=== PATIENT | male | born 1965 | race Caucasian/White ===

== ENCOUNTER 2018-12-09 03:34 | Emergency (ER) | payer BC ==
[2018-12-09] MEDS ORDERED: KETOROLAC TROMETHAMINE 60 MG/2 ML VIAL IM ONE (03:46)
[2018-12-09] MEDS ORDERED: predniSONE 20 MG TABLET (UD) PO ONE (03:47)
[2018-12-09] MEDS ORDERED: CYCLOBENZAPRINE HCL 10 MG TABLET (FP) PO ONE (03:47)
[2018-12-09 03:48] VITALS: BP 137/84; PULSE 68; TEMP 97.7; BMI 36.2
--- NOTE | 2018-12-09 03:49 | PDOC ---
History of Present Illness - General Chief Complaint: Back Pain Stated Complaint: BACK PAIN Time Seen by Provider: 12/09/18 03:42 History Source: Patient Exam Limitations: No Limitations - History of Present Illness Initial Comments: 12/09/18 03:52 This is a 53-year-old male who comes in complaining of low back pain. Patient said he fell on some steps and injured his back several days ago. Patient said he was fine and there was no pain to today when he developed spasms in the back. Patient denied any radiation down his leg. Patient denied any neurological symptoms. Patient is only taken a couple of Tylenol earlier in the day for the pain without relief. Allergies: as per nursing notes Past Medical History: none Social history: Lives with family. No smoking. No alcohol. No illicit drugs. Surgical history: None General: No fevers or chills, no weakness, no weight loss HEENT: No change in vision. No sore throat,. No ear pain CardioVascular: no chest discomfort. No shortness of breath Respiratory:No cough, or wheezing. Gastrointestinal: no nausea, vomiting, diarrhea or constipation, No rectal bleeding Genitourinary: No dysuria, hematuria, or frequency Musculoskeletal: Low back pain as per history of present illness by Neurologic: No headache, vertigo, dizziness or loss of consciousness Psychiatric: nor depression Skin: No rashes or easy bruising Endocrine: no increased thirst or abnormal weight change Allergic: no skin or latex allergy All other systems reviewed and normal GENERAL: The patient is awake, alert, and fully oriented, in no acute distress. HEAD: Normal with no signs of trauma. EYES: Pupils equal, round and reactive to light, extraocular movements intact, sclera anicteric, conjunctiva clear. BACK: There is spasm and some mild tenderness to the right paraspinal area in the mid back. There is no tenderness of the thoracic lumbar or cervical spine. Neurovascular is intact. EXTREMITIES:atraumatic, Normal range of motion, no edema. NEUROLOGICAL: Normal speech, normal gait. PSYCH: Normal mood, normal affect. SKIN: Warm, Dry, normal turgor, no rashes or lesions noted. Assessment and plan: This is a 53-year-old male who developed spasm in his mid back area post falling and injuring himself. Patient initially had no discomfort but then over the course of several days developed a discomfort to the point now he came in. Patient was given an anti-inflammatory Toradol, Flexeril for muscle relaxing and prednisone. Patient discharged home will follow -up with his primary care doctor. Past History - Past Medical History Allergies/Adverse Reactions: Allergies Allergy/AdvReac Type Severity Reaction Status Date / Time No Known Allergies Allergy Verified 06/23/16 12:27 Home Medications: Ambulatory Orders Alprazolam [Xanax] 0.25 mg PO DAILY PRN 06/16/16 Calcium Carbonate/Vitamin D3 [Calcium 600 + Vitamin D Sftgl] 2 tab PO DAILY Multivitamins [Multivit ([facility] Formulary)] 1 tab PO DAILY 06/16/16 Floyd-3/Dha/Epa/Fish Oil [Fish Oil 500 mg Softgel] 2 cap PO DAILY 06/16/16 Omeprazole 40 mg PO DAILY 06/16/16 Zolpidem Tartrate [Ambien] 10 mg PO HS PRN 06/16/16 Oxycodone HCl/Acetaminophen [Percocet 5-325 mg Tablet] 1 tab PO Q4H PRN #20 tablet MDD 6 06/23/16 Cyclobenzaprine HCl [Flexeril -] 10 mg PO TID PRN #21 tablet MDD 3 06/24/16 Cyclobenzaprine HCl [Flexeril 10 mg] 10 mg PO TID PRN #45 tablet 12/09/18 Methylprednisolone [Medrol Dose Vladimir] 4 mg PO ASDIR #21 tablet 12/09/18 Naproxen 500 mg PO BID #28 tablet 12/09/18 Anemia: No Asthma: No Cancer: No Cardiac Disorders: No CVA: No COPD: No CHF: No Dementia: No Diabetes: No GI Disorders: No (GERD,diverticulosis) Disorders: No HTN: No Hypercholesterolemia: No Liver Disease: No Seizures: No Thyroid Disease: No - Surgical History Appendectomy: Yes Cardiac Surgery: No Cholecystectomy: No Lung Surgery: No Neurologic Surgery: No Orthopedic Surgery: No - Suicide/Smoking/Psychosocial Hx Smoking History: Never smoked Have you smoked in the past 12 months: No Hx Alcohol Use: Yes (socially) Drug/Substance Use Hx: No Substance Use Type: Alcohol Hx Substance Use Treatment: No *DC/Admit/Observation/Transfer Diagnosis at time of Disposition: Low back pain Qualifiers: Chronicity: acute Back pain laterality: right Sciatica presence: without sciatica Qualified Code(s): M54.5 - Low back pain - Discharge Dispostion Disposition: HOME Condition at time of disposition: Good Decision to Admit order: No - Prescriptions Prescriptions: Cyclobenzaprine HCl [Flexeril 10 mg] 10 mg PO TID PRN #45 tablet PRN Reason: Muscle Spasms Methylprednisolone [Medrol Dose Vladimir] 4 mg PO ASDIR #21 tablet Naproxen 500 mg PO BID #28 tablet - Referrals Referrals: Trevin Perez MD [Primary Care Provider] - - Patient Instructions Additional Instructions: I sent prescriptions to your pharmacy for a pain medication naproxen which is also an anti-inflammatory he will take it twice a day. In addition to that there is a muscle relaxer you canl take 3 times a day it will make you drowsy so if you have to limited to the nighttime hours you want you can. Lastly there is a steroid taper called a Medrol Dosepak that he will take as directed by the pack. Return to the emergency department immediately with ANY new, persistent or worsening symptoms. Continue any medications as previously prescribed by your physician. You should follow up with your primary doctor as soon as possible regarding today's emergency department visit. . Please make sure your doctor reviews the results of your emergency evaluation. Thank you for coming to the Emergency Department today for your care. It was a pleasure to see you today. Please note that your evaluation is INCOMPLETE until you follow-up with your doctor. - Post Discharge Activity
[2018-12-09] MEDS ORDERED: KETOROLAC TROMETHAMINE 60 MG/2 ML VIAL ONE (03:51)
[2018-12-09] MEDS ORDERED: CYCLOBENZAPRINE HCL 10 MG TABLET (FP) ONE (03:52)
[2018-12-09] MEDS ORDERED: predniSONE 20 MG TABLET (UD) ONE (03:52)
--- NOTE | 2018-12-09 09:45 | PDOC ---
Patient Follow-up (Call Back) - Post ED Follow - Up Condition at time of discharge: Good Disposition at time of original discharge: HOME - Disposition Additional Instructions/Notes: Pt called in stating prescriptions from visit last night were sent to the wrong pharmacy. Pharmacy information was updated and prescriptions were send to preferred pharmacy. Called previously listed pharmacy to confirm prescriptions were not picked up and cancelled them.
== END 2018-12-09 04:18 | disposition home or self-care (01) ==
LOC: FER 03:34
PROC: 3E0233Z Introduction of Anti-inflammatory into Muscle, Percutaneous Approach (ICD-10-PCS; principal; 2018-12-09)
DX: M54.5 Low back pain (principal); K21.9 Gastro-esophageal reflux disease without esophagitis; W10.9XXA Fall (on) (from) unspecified stairs and steps, initial encounter; Y93.89 Activity, other specified; Y92.89 Other specified places as the place of occurrence of the external cause
CPT/HCPCS: 99282-25

== ENCOUNTER 2020-10-24 04:44 | Emergency (ER) | payer BC ==
[2020-10-24 05:03] VITALS: BP 122/83; PULSE 59; TEMP 98.5; BMI 36.6
== END 2020-10-24 05:17 | disposition home or self-care (01) ==
LOC: FER 04:44
DX: R00.2 Palpitations (principal)
CPT/HCPCS: 93005; 99283-25